=== PATIENT | female | born 1995 | race Caucasian/White ===

== ENCOUNTER 2018-02-24 09:02 | Emergency (ER) | payer OTHER ==
[2018-02-24] MEDS: predniSONE 20 MG TAB PO (09:34)
[2018-02-24] MEDS: HYDROCODONE/APAP (5/325) TAB PO (09:34)
[2018-02-24] MEDS: ONDANSETRON (ODT) 4 MG TAB ODT (09:35)
== END 2018-02-24 10:07 | disposition home or self-care (01) ==
LOC: FTE 09:02
DX: M25.522 Pain in left elbow (principal); M25.511 Pain in right shoulder; M25.512 Pain in left shoulder; M25.521 Pain in right elbow; M25.531 Pain in right wrist; M25.532 Pain in left wrist; M25.561 Pain in right knee; M25.562 Pain in left knee
CPT/HCPCS: 99283